=== PATIENT | male | born 1995 | race Caucasian/White ===

== ENCOUNTER 2025-03-15 11:11 | Outpatient (AMB) | payer BC, SELFPAY ==
--- NOTE | 2025-03-15 11:34 | MHC.PC.OV ---
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 Transferring care from [facility] ?. Medical records have not been requested and have not received. 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 He was 21 years old, when he was in sports Last PE: 8 -9 years Specialist: no OBGYN:n/a Past medical history: ADHD, High blood pressure Medications: Family HX: heart disease runs in the family both paternal and maternal Problem: Reports that he is here to establish care and possible get back on medication for his ADHD. Reports that he has been off the medication for about 5 years since he stopped going to the doctors. Drinks a lot of coffee, mostly when he is at work. He had one cup of coffee about 6 this morning Left forearm lump and left triceps lump. Reports that he notice the upper arm lump about 5 years ago and the inner forearm a year ago. The areas does not hurt, will order and US to further assess the area. He denies chest pain, sob, heart palpitation or dizziness No abdominal pain/change in bowel habits Denies in urinary symptoms Will order labs and advise [facility] Medical History (Updated 03/16/25 @ 11:24 by BETZY Hudson) ADHD Surgical History History of removal of skin mole History of wisdom tooth extraction History of tonsillectomy Family History (Updated 03/16/25 @ 11:26 by BETZY Hudson) Family/Other Heart disease Social History (Updated 03/15/25 @ 11:47 by Kervin Hastings Karrie) Housing: Apartment Alcohol intake: current Alcohol intake frequency: a few times a week Patient Tobacco Use Status: Never used Tobacco Tobacco use type: Smokeless Tobacco (chewing nicotin) e-Cigarette/Vaping Use: Never Used Second Hand Smoke Exposure: Yes service: No Current occupational status: employed 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 1. Little interest or pleasure in doing things: not at all 2. Feeling down, depressed, or hopeless: not at all 3. Trouble falling or staying asleep, or sleeping too much: not at all 4. Feeling tired or having little energy: not at all 5. Poor appetite or overeating: not at all 6. Feeling bad about yourself - or that you are a failure or have let yourself or your family down: not at all 7. Trouble concentrating on things, such as reading the newspaper or watching television: not at all 8. Moving or speaking so slowly that other people could have noticed. Or the opposite - being so fidgety or restless that you have been moving around a lot more than usual: not at all 9. Thoughts that you would be better off or of hurting yourself in some way: not at all Total score: 0 Depression Screening Interpretation: Negative Depression Screening Done: Yes 44893 - PHQ-9 Billing: Yes Source: Developed by Drs. Gus Tomas, Magalys Elizabeth, Will Pandya and colleagues, with an educational marlena from [employer]. Thrive Questionnaire Date Thrive assessed: 03/15/25 I am a: Patient What is your living situation today?: I have a steady place to live Within the past 12 months, did the food you bought not last and you didn't have the money to get more?: Never true Within the past 12 months, did you worry whether your food would run out before you got money to buy more?: Never true Do you have trouble paying for medicines?: No Do you have trouble getting transportation to medical appointments?: No Do you have trouble paying your heating and electricity bill?: No Do you have trouble taking care of your child, family member or friend?: No Do you have trouble with day-to-day activities such as bathing, preparing meals, shopping, managing finances, etc.?: No Are you currently unemployed and looking for a job?: No Are you interested in more education?: Yes Please select the resources that you would like help with: None Currently or been in a relationship where the following occur: No concerns reported THRIVE Score: 0 AUDIT C Alcohol Use Questionnaire (AUDIT-C) 1. How often do you have a drink containing alcohol?: 2-3 times a week 2. How many drinks containing alcohol do you have on a typical day when you are drinking?: 1 or 2 3. How often do you have six or more drinks on one occasion?: Never Total Score: 3 KEM-7 AMB Questionnaire KEM-7 Date KEM - 7 assessed: 03/15/25 Feeling nervous, anxious, or on edge: 0 = Not at all Not being able to stop or control worryin = Not at all Worrying too much about different things: 0 = Not at all Trouble relaxin = Not at all Being so restless that it is hard to sit still: 0 = Not at all Becoming easily annoyed or irritable: 0 = Not at all Feeling afraid as if something awful might happen: 0 = Not at all Total KEM-7 score (0-4 normal; 5-9 mild; 10-14 moderate; 15-21 severe): 0 Source: Developed by Drs. Gus Tomas, Magalys Elizabeth, Will Pandya and colleagues, with an educational marlena from [employer]. KEM-7 Assessment Billing KEM-7 Assessment Tool: KEM-7 Assessment 92253 Review of Systems Const Denies headache(s) Eyes Denies loss of vision ENT Denies vertigo, Denies dizziness, Denies headache(s) and Denies sore throat Card Denies chest pain, Denies leg edema and Denies lightheadedness Resp Denies cough, Denies hemoptysis and Denies wheezing GI Denies abdominal pain, Denies melena, Denies constipation, Denies diarrhea and Denies vomiting Denies dysuria, Denies urinary frequency and Denies urinary urgency Musc Denies arthralgias, Denies joint swelling, Denies numbness and Denies tingling Skin/Breast Denies lesions and Denies rash Neuro Denies Abnormal speech present, Denies behavioral changes, Denies vertigo, Denies dizziness, Denies headache(s), Denies loss of vision, Denies memory loss, Denies numbness and Denies tingling Psych Denies anxiety, Denies behavioral changes, Denies depression, Reports difficulty concentrating, Denies memory loss and Denies panic attacks Bam/Lymph Denies easy bleeding and Denies easy bruising Aller/Immun Denies wheezing Physical exam (Primary Care) Vital Signs: Last Vital Signs Temp 97.5 F 03/15/25 11:39 Pulse 81 03/15/25 11:39 BP 138/86 03/15/25 11:56 Pulse Ox 98 03/15/25 11:39 Oxygen Delivery Method Room Air 03/15/25 11:39 BMI result Body Mass Index 27.4 Tobacco/Smoking Status: Tobacco use Status Tobacco use date assessed 03/15/25 03/15/25 11:48 Patient Tobacco Use Status Never used Tobacco 03/15/25 11:48 Tobacco use type Smokeless Tobacco (chewing 03/15/25 11:48 nicotin) e-Cigarette/Vaping Use Never Used 03/15/25 11:48 PHQ-9: PHQ-9 Score PHQ-9: Total score 0 03/15/25 12:20 Depression Screening Interpretation: Negative Thrive Assessment: Date of Thrive Assessment Date Thrive assessed 03/15/25 03/15/25 11:48 Currently or been in a relationship where the following occur: No concerns reported Const General: healthy appearing, no acute distress, alert and awake Nutritional Appearance: well nourished Orientation/consciousness: oriented to person, oriented to place and oriented to time HENMT Ears: TM's normal bilaterally General nose exam: Normal nasal mucous membranes and turbinates present Eyes Conjunctivae: conjunctivae normal Sclerae: sclerae normal Pupils: Equal, round and reactive pupils present Neck Neck: Yes no lymphadenopathy and Yes no JVD Thyroid: Thyroid normal Carotids: no bruits Resp Effort & Inspection: normal respiratory effort and not tachypneic Auscultation: no crackles, no rales, no rhonchi and no wheezes Cardio Rate: regular rate Rhythm: regular rhythm Heart sounds: no murmurs and normal S1 and S2 GI Palpation (GI): Soft to palpation, nontender, no hepatomegaly and no splenomegaly Auscultation: normal bowel sounds Skin General skin exam: no rashes or lesions noted and dry skin Neuro General: oriented to person, oriented to place and oriented to time Cranial nerves: Yes Equal, round and reactive pupils present Speech: No Abnormal speech present Gait exam (Neuro): Normal gait present Motor exam (neuro): no tremor noted Extrem Right upper extremity: full ROM Left upper extremity: full ROM Right lower extremity: full ROM; no edema Left lower extremity: full ROM; no edema Psych Mental Status: mental status grossly normal Speech and movement: Normal speech and movement present Affect: normal affect Attitude: cooperative Thought process: Normal thought process present Coding Level of Care Code New Pt Level 3 (56164) Diagnoses Attention deficit hyperactivity disorder (ADHD), unspecified ADHD type F90.9 Attention deficit-hyperactivity disorder type: unspecified Hypertension, unspecified type I10 Hypertension type: unspecified Additional Codes PHQ-9 - 33853 - PHQ-9 Billing: Yes ([id number]) KEM-7 Assessment Billing - KEM-7 Assessment Tool: KEM-7 Assessment 31560 ([id number]) Time Spent (min) 36 Assessment & Plan Assessment & Plan (1) ADHD: Code(s): F90.9 - Attention-deficit hyperactivity disorder, unspecified type Category: Medical Qualifiers: Attention deficit-hyperactivity disorder type: unspecified Qualified Code(s): F90.9 - Attention-deficit hyperactivity disorder, unspecified type Plan: The patient reports that he was on a extended release stimulant in the past. He has been off this medication for at least five years now. Reports that he stopped going to the doctor's and did not have anymore refills. Reports that he was doing well when he had a lower position at work, but is having difficulty concentrating since he had been promoted. Discussed with the patient that he could be started back on medication to help him concentrate once we receives his medical records. (2) High blood pressure: Code(s): I10 - Essential (primary) hypertension Category: Medical Qualifiers: Hypertension type: unspecified Qualified Code(s): I10 - Essential (primary) hypertension Plan: Reports that he has been told multiple times that he has high blood pressure. BP 138/86, the patient reports that he eats a healthy balance diet and does not eat much salt. Reports that his father has high blood pressure. Explained to the patient that we would have to get his blood pressure under control if he was to be placed on a stimulant which could increases high blood presssure even more. He verbalized understanding. Orders: Orders Complete Blood Count Auto Diff 03/15/25 Z00.00 - Encounter for general adult medical examination without abnormal findings Lipid Panel 03/15/25 Z00. - Encounter for general adult medical examination without abnormal findings TSH reflex Free T4 03/15/25 Z00.00 - Encounter for general adult medical examination without abnormal findings Comprehensive [place]. Panel Fast 03/15/25 Z00. - Encounter for general adult medical examination without abnormal findings UA CC w/rflx Micro + Cult 03/15/25 Z00.00 - Encounter for general adult medical examination without abnormal findings Vitamin D 25-OH Total 03/15/25 Z00.00 - Encounter for general adult medical examination without abnormal findings ECG 12 lead EKG Today F90.9 - Attention-deficit hyperactivity disorder, unspecified type, I10 - Essential (primary) hypertension
[2025-03-15 11:39] VITALS: BP 120/82; PULSE 81; RESP 16; TEMP 36.4; O2SAT 98; BMI 27.4
[2025-03-15 11:56] VITALS: BP 138/86
== END 2025-03-15 12:23 | disposition home or self-care (01) ==
LOC: HO.HMCH 11:12
DX: F90.9 Attention-deficit hyperactivity disorder, unspecified type (principal); I10 Essential (primary) hypertension

== ENCOUNTER → 2025-03-15 11:11 | Outpatient (BNVA) | payer BC, SELFPAY | DX: F90.9 Attention-deficit hyperactivity disorder, unspecified type (principal); I10 Essential (primary) hypertension; Z13.31 Encounter for screening for depression; Z13.39 Encounter for screening examination for other mental health and behavioral disorders | CPT/HCPCS: 96127 ==

== ENCOUNTER 2025-04-13 07:28 | Outpatient (REF) | payer BC, SELFPAY ==
[2025-04-13 07:45] LABS: MANUAL DIFF FLAG NO
[2025-04-13 08:23] LABS: Hematocrit 40.3 % (42.0-52.0); Hemoglobin 14.2 g/dl (14.0-18.0); Imm Gran Abs Auto 0.02 X10*3/uL (0.00-0.03); Imm Gran Pct Auto 0.4 % (0.0-0.4); Lymphocytes Absolute Auto 2.0 X10*3/uL (1.2-4.9); Mean Corpuscular HGB Conc 35.2 g/dl (31.0-36.0); Mean Corpuscular Hemoglobin 30.0 pg (27.0-33.0); Mean Corpuscular Volume 85.0 fL (80.0-98.0); NRBC Abs Auto 0.000 X10*3/uL (0.0-0.012); NRBC Pct Auto 0.0 /100WBC (0.0-0.2); Platelet Count 240 X10*3/uL (160-400); Red Blood Count 4.74 X10*6/uL (4.60-5.80); White Blood Count 5.1 X10*3/uL (4.8-10.8)
[2025-04-13 08:37] LABS: Appearance Urine Clear; Glucose Urine UA Negative (Negative); PH 5.5 (5.0-9.0); Specific Gravity - Urine 1.025 (1.005-1.025)
[2025-04-13 09:14] LABS: Alanine Aminotransferase 39 U/L (0-40); Albumin Level 4.6 g/dL (3.5-5.0); Alkaline Phosphatase 54 U/L (39-117); Anion Gap 13 (12-20); Aspartate Amino Transferase 31 U/L (5-37); Blood Urea Nitrogen 14 mg/dL (9-16); Calcium 9.3 mg/dL (8.4-10.2); Carbon Dioxide 26 mmol/L (22-29); Chloride 105 mmol/L (96-108); Cholesterol 158 mg/dL (<200); Estimated Glomerular Filt Rate > 60; HDL Cholesterol 36 mg/dL (>40); Potassium 4.2 mmol/L (3.3-5.1); Sodium 140 mmol/L (135-145); Total Protein 6.9 g/dL (6.5-8.0); Triglycerides 66 mg/dL (<150)
== END 2025-04-13 07:29 | disposition home or self-care (01) ==
LOC: HO.LAB 07:28
DX: Z00.00 Encounter for general adult medical examination without abnormal findings (principal); Z13.6 Encounter for screening for cardiovascular disorders
CPT/HCPCS: 36415; 80053; 80061; 81003; 82306; 84443; 85025

== ENCOUNTER → 2025-04-19 15:22 | Outpatient (REF) | payer BC, SELFPAY ==
--- NOTE | 2025-04-19 15:25 | ECG_ITS ---
Test Reason : htn Blood Pressure : */* mmHG Vent. Rate : 68 BPM Atrial Rate : 68 BPM P-R Int : 152 ms QRS Dur : 110 ms QT Int : 404 ms P-R-T Axes : 54 -6 34 degrees QTcB Int : 429 ms Normal sinus rhythm Incomplete right bundle branch block Borderline ECG No previous ECGs available Referred By: Trent Waller Electronically Signed By: THALIA MCPHERSON MD
== END ==
LOC: HO.CARD 15:22
DX: I10 Essential (primary) hypertension (principal); F90.9 Attention-deficit hyperactivity disorder, unspecified type
CPT/HCPCS: 93005

== ENCOUNTER → 2025-04-19 15:25 | Outpatient (BNV) | payer BC, SELFPAY | PROVIDERS: Visit Provider Internal Medicine Cardiovascular Disease | DX: I45.10 Unspecified right bundle-branch block (principal) | CPT/HCPCS: 93010 ==

== ENCOUNTER 2025-06-14 14:55 | Outpatient (AMB) | payer BC, SELFPAY ==
[2025-06-14 15:26] VITALS: RESP 18
--- NOTE | 2025-06-14 15:26 | MHC.PC.OV ---
Vital Signs 06/14/25 15:26 06/14/25 15:28 06/14/25 16:10 Height 5 ft 10.47 in 5 ft 10 in Weight 208 lb BMI 29.8 BP 166/78 H 158/84 H Blood Pressure Location Lt brachial Lt brachial Lt brachial Position Sitting Sitting Sitting Respiration 18 18 Pulse 89 Pulse Source Pulse Oximeter Temp 97.5 F Temp Source Temporal Artery Scan Temporal Artery Scan Pulse Oximetry (%) 97 Oxygen Delivery Method Room Air Room Air Intake Visit Reasons: 8 weeks RE Cat Breeder Required: No Accompanied by: Self / Same As Patient Allergies No Known Allergies Allergy (Verified 06/14/25 15:26) Tobacco use date assessed: 06/14/25 Dental Screening Dental Screen Date: 06/14/25 Did you have a dental visit in the last 12 months?: Yes Did you have a dental problem in the last 6 months where you did not have access to dental care?: No Was dental information given to patient?: Patient has dentist [facility] Medical History (Updated 03/16/25 @ 11:24 by BETZY Hudson) ADHD Surgical History History of removal of skin mole History of wisdom tooth extraction History of tonsillectomy Family History (Updated 03/16/25 @ 11:26 by BETZY Hudson) Family/Other Heart disease Social History (Updated 03/15/25 @ 11:47 by CALEB Emmanuel) Housing: Apartment Alcohol intake: current Alcohol intake frequency: a few times a week Patient Tobacco Use Status: Never used Tobacco Tobacco use type: Smokeless Tobacco (chewing nicotin) e-Cigarette/Vaping Use: Never Used Second Hand Smoke Exposure: Yes service: No Current occupational status: employed 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 Cognitive needs: No Hearing needs: No Vision needs: No Questionnaire Thrive Questionnaire Date Thrive assessed: 03/15/25 I am a: Patient What is your living situation today?: I have a steady place to live Within the past 12 months, did the food you bought not last and you didn't have the money to get more?: Never true Within the past 12 months, did you worry whether your food would run out before you got money to buy more?: Never true Do you have trouble paying for medicines?: No Do you have trouble getting transportation to medical appointments?: No Do you have trouble paying your heating and electricity bill?: No Do you have trouble taking care of your child, family member or friend?: No Do you have trouble with day-to-day activities such as bathing, preparing meals, shopping, managing finances, etc.?: No Are you currently unemployed and looking for a job?: No Are you interested in more education?: Yes Please select the resources that you would like help with: None Currently or been in a relationship where the following occur: No concerns reported THRIVE Score: 0 KEM-7 AMB Questionnaire KEM-7 Date KEM - 7 assessed: 03/15/25 Source: Developed by Drs. Gus Tomas, Magalys Elizabeth, Will Pandya and colleagues, with an educational marlena from [employer]. Physical exam (Primary Care) Vital Signs: Last Vital Signs Temp 97.5 F 06/14/25 15:28 Pulse 89 06/14/25 15:28 Resp 18 06/14/25 15:28 BP 158/84 H 06/14/25 16:10 Pulse Ox 97 06/14/25 15:28 Oxygen Delivery Method Room Air 06/14/25 15:28 BMI result Body Mass Index 29.8 Tobacco/Smoking Status: Tobacco use Status Tobacco use date assessed 06/14/25 06/14/25 15:32 Patient Tobacco Use Status Never used Tobacco 06/14/25 15:32 Tobacco use type Smokeless Tobacco (chewing 06/14/25 15:32 nicotin) e-Cigarette/Vaping Use Never Used 06/14/25 15:32 Thrive Assessment: Date of Thrive Assessment Date Thrive assessed 03/15/25 06/14/25 15:32 Currently or been in a relationship where the following occur: No concerns reported Immunizations Tenivac (PF) 5 Lf unit-2 Lf unit/0.5 mL intramuscular syringe Performing Provider: BETZY Hudson [place] [facility] [place] [facility] Administered by: CALEB Rider on 06/14/25 16:06 Dose Route Admin Location Dispensed Lot Number Expiration Date [facility] Animation Producer 0.5 mL IM Right Deltoid 0.5 mL [id number] 11/27/26 83740-553-78 [employer] Total Dispensed Waste 0.5 mL 0 % VIS Given Date VIS Provided VIS Publication Date 06/14/25 Single Vaccine 21 Eligibility Eligibility Date Funding Source Not [facility] Eligible 06/14/25 Private Coding Assessment & Plan Assessment & Plan Orders: Orders Td Immunization 06/14/25 Z23 - Encounter for immunization Medications: New lisinopril 5 mg PO DAILY 30 tabs 3RF methylphenidate HCl ER Partial Fill upon patient request. 20 mg PO BID 60 tabs 0RF
[2025-06-14 15:28] VITALS: BP 166/78; PULSE 89; RESP 18; TEMP 36.4; O2SAT 97; BMI 29.8
[2025-06-14 16:10] VITALS: BP 158/84
== END 2025-06-14 16:22 | disposition home or self-care (01) ==
LOC: HO.HMCH 14:56
DX: Z23 Encounter for immunization (principal)

== ENCOUNTER → 2025-06-14 14:55 | Outpatient (BNVA) | payer BC, SELFPAY | DX: Z00.00 Encounter for general adult medical examination without abnormal findings (principal); I10 Essential (primary) hypertension; E78.00 Pure hypercholesterolemia, unspecified; F90.9 Attention-deficit hyperactivity disorder, unspecified type; Z23 Encounter for immunization | CPT/HCPCS: 90471; 90714 ==